=== PATIENT | male | born 1930 | race Caucasian/White ===

== ENCOUNTER 2017-03-13 09:56 | Outpatient (CLI) | payer MEDICARE ==
--- NOTE | 2017-03-13 14:14 | ULT ---
ULTRASOUND ABDOMINAL AORTA: HISTORY: Abdominal aortic aneurysm. COMPARISON: CT abdomen and pelvis from 09/27/2013. FINDINGS: Real-time Rios-scale and color evaluation of the aorta was performed with the transabdominal approach . The proximal aorta measures 2.8 x 2 x 2 cm. The mid aorta is aneurysmal, measuring 4.3 x 4.3 x 4. 1 cm. The distal aorta measures 1.6 x 1.4 cm. The right common iliac artery measures 1.2 x 1 x 0.8 cm. The left common iliac artery measures 1.2 x 1.2 x 1 cm. The IVC is normal. IMPRESSION: Interval size increase of the infrarenal abdominal aortic aneurysm from the 2013 examination, now scotty suring up to 4.3 cm. POS: [facility]
== END 2017-03-13 09:57 | disposition home or self-care (01) ==
LOC: ULT 09:56
PROVIDERS: ATTEND Internal Medicine Cardiovascular Disease
DX: I71.4 Abdominal aortic aneurysm, without rupture (principal)
CPT/HCPCS: 76775